=== PATIENT | male | born 1950 | race Caucasian/White ===

== ENCOUNTER → 2024-04-08 06:20 | Day surgery (SDC) | payer OTHER, SELFPAY ==
[2024-04-08 07:27] LABS: Glucose - Point of Care 92 mg/dl (70-99)
== END ==
LOC: GI 06:20
PROVIDERS: ATTENDING PHYSICIAN Internal Medicine Gastroenterology
DX: Z12.11 Encounter for screening for malignant neoplasm of colon (principal); K64.8 Other hemorrhoids; K57.30 Diverticulosis of large intestine without perforation or abscess without bleeding; Z86.010 Personal history of colon polyps
CPT/HCPCS: G0105; 82962

== ENCOUNTER → 2025-02-09 17:42 | Outpatient (REF) | payer OTHER, SELFPAY | LOC: RAD 17:42 | PROVIDERS: ATTENDING PHYSICIAN Family Medicine | DX: L03.116 Cellulitis of left lower limb (principal); M79.5 Residual foreign body in soft tissue | CPT/HCPCS: 73630 ==

== ENCOUNTER 2025-03-15 06:02 | Day surgery (SDC) | payer OTHER, SELFPAY ==
[2025-03-08 13:53] VITALS: BMI 20.9
[2025-03-15] MEDS: TYLENOL 1000 MG PO (06:48)
[2025-03-15 06:49] VITALS: BMI 20.9
[2025-03-15 06:52] VITALS: BP 149/79
[2025-03-15] MEDS: NORMOSOL-R/PLASMALYTE-A 1000 IV (06:55)
--- NOTE | 2025-03-15 07:02 | W.SUR.PREOP ---
Pre-Operative Surgical Note
-
I have examined this patient prior to the performance of the scheduled procedure.
The patient's condition is unchanged from the time of the current History and
Physical and the patient is able to undergo the scheduled procedure.
[2025-03-15 09:08] VITALS: BP 115/66; BP 149/79
[2025-03-15 09:30] VITALS: BP 124/54
[2025-03-15] MEDS: ZOFRAN 4 MG IV (09:35)
--- NOTE | 2025-03-15 09:35 | W.IMMPOSTOP ---
Surgical Immed Post Op Note
-
Primary Surgeon: Jean Manuel MD
Assisting Surgeon: None
Pre-op Diagnosis: Right inguinal hernia
Post-op Diagnosis: Same
Procedure Performed:
1. Open right inguinal hernia repair with mesh (Boaz technique)
2. Pragmatic inguinal neurectomy
Anesthesia Type: General
Specimen / Cultures: Inguinal nerve
Estimated Blood Loss: 3 cc
Complications: [None]
Operative Findings: Small indirect inguinal hernia, high ligation performed. Large bulky cord lipoma ligated at the level of the internal ring. The floor was reinforced with a 10 x 15 cm Bard soft polypropylene uncoated mesh cut to size in the
standard Boaz fashion.
--- NOTE | 2025-03-15 09:37 | SUR.PHASEI ---
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 Pt medicated with zofran and stated it was very slight.
--- NOTE | 2025-03-15 09:37 | OR.RPT ---
Operative Report
Operative Report
Patient Name: Ceferino Mercado
: 1950
Date of Operation: 03/15/2025
Preoperative Diagnosis: Reducible Inguinal hernia, right
Postoperative Diagnosis: Same
Procedure(s):
1. Open right inguinal Hernia Repair (Boaz technique)
2. Pragmatic right inguinal neurectomy
Surgeon(s):
Dr. Manuel
Exchange Teller(s):
HERMAN Hubbard
Anesthesia: General
Estimated Blood Loss: 3 cc
Urine Output: None
Drains/Lines/Implants: 3 x 6 inch Bard soft uncoated polypropylene mesh cut to size
Specimens: None
Indication for surgery: The patient has a history of groin pain and some asymmetry noted on exam and was found to have a right inguinal Hernia. Following review of therapeutic options they has elected to undergo an open repair
Operative Findings: Small indirect inguinal hernia, high ligation performed. Large bulky cord lipoma ligated at the level of the internal ring. The floor was reinforced with a 10 x 15 cm Bard soft polypropylene uncoated mesh cut to size in the
standard Boaz fashion.
Details of the operation:
After induction of general anesthesia, the patient was clipped, prepped and draped in the supine position. A team timeout was performed confirming administration of DVT prophylaxis, IV antibiotics and SCDs. The ASIS and pubic tubercle were marked
and an incision was chosen along the course of a skin line. The skin was anesthetized with Lidocaine. An incision was made through the skin line and dissection carried down through subcutaneous tissue and Brett's fascia. The superficial epigastric
vein was identified and ligated. A Small Vamshi wound retractor was used to provide exposure. The external oblique fibers were then divided in the direction of travel. The ilioinguinal nerve was identified and sacrificed. Dissection was carried down
to the floor, which revealed the following:
At the site of the indirect (internal) ring, there was a moderate size protrusion of preperitoneal fat, the hernia sac was identified, dissected and reduced off the cord structures. A high ligation was performed.
A cord lipoma was also identified and reduced.
The direct space, floor of the canal revealed no weakness.
The floor of the canal was then reconstructed by placing a 6x3 in BARD flat polypropylene mesh trimmed to size and secured it in place with interrupted 0-PDS sutures medially at the pubic tubercle, inferiorly along the inguinal ligament,
laterally/superiorly in the conjoint tendon. A slit was made in the mesh just wide enough to accommodate the cord this was also reapproximated with the PDS suture. Care was taken not to injure or entrap any nerves. The external oblique fibers were
then closed using a running 2-0 Vicryl suture. Brett's fascia was then closed with interrupted 3-0 Vicryl suture. The skin was closed in layers with interrupted 3-0 vicryl deep dermals followed by a running subcuticular 4-0 Monocryl followed by
dermabond. The patient returned to the Recovery Room in stable condition. Sponge and instrument counts were correct.
I was the attending physician and performed the procedure with assistance from the STU[employer] APPLICATOR above. I was present for all portions of the case, excluding skin closure.
Jean Manuel MD
[2025-03-15 09:40] VITALS: BP 120/60
[2025-03-15 10:15] VITALS: BP 115/64
[2025-03-15 10:45] VITALS: BP 107/65
== END 2025-03-15 11:05 | disposition home or self-care (01) ==
LOC: SDS 06:02
PROVIDERS: ATTENDING PHYSICIAN Surgery; FAMILY PHYSICIAN Family Medicine
DX: K40.90 Unilateral inguinal hernia, without obstruction or gangrene, not specified as recurrent (principal)
CPT/HCPCS: 49505; 88304; 36415; 93005